=== PATIENT | male | born 1985 | race Caucasian/White ===

== ENCOUNTER 2018-02-27 13:25 | Emergency (ER) | payer BC ==
[2018-02-27 14:03] VITALS: BP 109/73
--- NOTE | 2018-02-27 14:12 | RAD ---
INDICATION: Right ankle injury. TECHNIQUE: 3 views of the right ankle were obtained. FINDINGS: Soft tissue swelling is noted along the anterolateral aspect of the ankle. No fracture is seen. Joint spaces appear maintained. IMPRESSION: SOFT TISSUE SWELLING, NO FRACTURE IS SEEN.
--- NOTE | 2018-02-27 14:15 | RAD ---
INDICATION: Right foot injury. TECHNIQUE: 3 views of the right foot were obtained. FINDINGS: There is lateral soft tissue swelling. The bones are normal alignment. No fracture is seen. Joint spaces appear maintained. IMPRESSION: NO EVIDENCE FOR FRACTURE, IF THE PATIENT'S SYMPTOMS PERSIST RECOMMEND FOLLOW-UP IMAGING.
--- NOTE | 2018-02-27 14:40 | UC ---
Lower Extremity/Ankle HPI - HPI Summary HPI Summary: 32 yo gentleman c/o R foot pain, radiates to ankle. Foot pain is prox dorsal primarily. Also discomfort periodically Great toe. Denies known injury. Did play basketball a couple weeks ago, no problems during the game, but awoke the next morning with a great deal of pain. Still hurts, downward position hurts. Not sure may be flat foot. Not hyperflexible, indeed reports that he is not flexible. - History of Current Complaint Chief Complaint: UCLowerExtremity Stated Complaint: RT FOOT COMP Time Seen by Provider: 02/27/18 13:53 Hx Obtained From: Patient Pain Intensity: 8 - Allergies/Home Medications Allergies/Adverse Reactions: Allergies Allergy/AdvReac Type Severity Reaction Status Date / Time No Known Allergies Allergy Verified 02/27/18 14:02 PMH/Surg Hx/FS Hx/Imm Hx Previously Healthy: Yes - Surgical History Surgical History: None - Family History Known Family History: Positive: Unknown - Social History Alcohol Use: Weekly Substance Use Type: Marijuana Substance Use Comment - Amount & Last Used: daily/weekly use Smoking Status (MU): Never Smoked Tobacco Review of Systems Constitutional: Negative Skin: Negative Eyes: Negative ENT: Negative Respiratory: Negative Cardiovascular: Negative Gastrointestinal: Negative Genitourinary: Negative Motor: Other - see hpi Musculoskeletal: Arthralgia Neurological: Negative Psychological: Negative Is Patient Immunocompromised?: No All Other Systems Reviewed And Are Negative: Yes Physical Exam Triage Information Reviewed: Yes Appearance: Well-Nourished Vital Signs: Initial Vital Signs Temp 98.5 F 02/27/18 13:58 Pulse 57 02/27/18 13:58 Resp 14 02/27/18 13:58 BP 109/73 02/27/18 13:58 Pulse Ox 99 02/27/18 13:58 Vital Signs Reviewed: Yes Eye Exam: Normal - grossly normal ENT Exam: Normal - grossly normal Neck exam: Normal - no c/o's Respiratory Exam: Normal - no tachypnea, no dyspnea Cardiovascular Exam: Normal Cardiovascular: Positive: RRR, No Murmur, Pulses Normal, Brisk Capillary Refill Abdominal Exam: Normal Abdomen Description: Positive: Nontender Musculoskeletal Exam: Other - Tender diffuse R foot, mostly proximal. Tenderness extens post mall region, but w/o point tenderness. Minimal swelling ( although + c/o pain in downward position). Seems flat footed. C/o ankle and foot cracking sounds / sensation when moves foot. Neurological Exam: Normal - distal sens LT present x 5 digits Psychological Exam: Normal - conversing easily and appropriately Lower Extremity Course/Dx - Course Course Of Treatment: XRAys ankle / foot nad. Likely overuse / sprain; however, suspect underlying etiology not definable at this time. Consider [facility]? Mr Burnett expresses interest in orthopedic referral. Referral placed to ortho. CAM boot for comfort. Rx naproxen. Questions as posed answered to the best of my ability. - Differential Dx/Diagnosis Provider Diagnoses: Chronic foot arthralgia,. with additional sprain Discharge - Sign-Out/Discharge Documenting (check all that apply): Discharge/Admit/Transfer - Discharge Plan Condition: Stable Disposition: HOME Prescriptions: Naproxen [Naprosyn 500 mg tab] 500 mg PO Q12H PRN #30 tablet PRN Reason: Pain Patient Education Materials: Sprain (ED), Arthralgia (ED) Referrals: Kyle Braswell MD [Medical Doctor] - No Primary Care Phys,NOPCP [Primary Care Provider] - Additional Instructions: Exact reason for your foot pain is unclear (in addition to sprain) Follow up with orthopedic surgery - 1-2 weeks. Offload as much as possible. Seek medical attention for worse or new problems. - Billing Disposition and Condition Condition: STABLE Disposition: Home
== END 2018-02-27 14:43 | disposition home or self-care (01) ==
LOC: UCCORT 13:25
DX: S93.601A Unspecified sprain of right foot, initial encounter (principal); X50.0XXA Overexertion from strenuous movement or load, initial encounter; Y93.67 Activity, basketball; Y92.9 Unspecified place or not applicable; Y99.9 Unspecified external cause status; M25.571 Pain in right ankle and joints of right foot
CPT/HCPCS: 99203; G0463

== ENCOUNTER 2019-10-26 17:44 | Emergency (ER) | payer BC, OTHER ==
--- NOTE | 2019-10-26 18:30 | UC ---
FLU HPI - HPI Summary HPI Summary: 33 yo male presents with flu-like symptoms. He tells me that last night he began to have fever, fatigue, body aches, and nausea. Has not taking anything OTC for his symptoms. Is concerned he has the flu. Did not get the flu shot this year. Denies SOB, rash, abdominal pain, vomiting, diarrhea. - History of Current Complaint Stated Complaint: FLU SXS,FEVER Time Seen by Provider: 10/26/19 18:30 Hx Obtained From: Patient Onset/Duration: Sudden Onset Severity Currently: Moderate Severity Initially: Moderate Pain Intensity: 4 Pain Scale Used: 0-10 Numeric - Allergy/Home Medications Allergies/Adverse Reactions: Allergies Allergy/AdvReac Type Severity Reaction Status Date / Time No Known Allergies Allergy Verified 10/26/19 18:34 Home Medications: Home Medications Phenylephrine/Dm/Acetaminop/GG [Tylenol Cold-Flu Severe Caplet] 1 each PO ONCE 10/26/19 [History Confirmed 10/26/19] PMH/Surg Hx/FS Hx/Imm Hx - Additional Past Medical History Additional PMH: None - Surgical History Surgical History: None - Family History Known Family History: Positive: Unknown - Social History Occupation: Employed Full-time Lives: With Family Alcohol Use: Weekly Substance Use Type: Marijuana Substance Use Comment - Amount & Last Used: daily/weekly use Smoking Status (MU): Never Smoked Tobacco Review of Systems All Other Systems Reviewed And Are Negative: No Constitutional: Positive: Fever, Fatigue, Other - Body aches Skin: Positive: Negative Eyes: Positive: Negative ENT: Positive: Negative Respiratory: Positive: Cough Cardiovascular: Positive: Negative Gastrointestinal: Positive: Nausea Genitourinary: Positive: Negative Neurological/Mental Status: Positive: Negative Psychological: Positive: Negative Physical Exam - Summary Physical Exam Summary: GENERAL: NAD. WDWN. No pain distress. SKIN: No rashes, sores, lesions, or open wounds. HEENT: Head: AT/NC Eyes: EOM intact. Conjunctiva clear without inflammation or discharge. Ears: Hearing grossly normal. TMs intact, no bulging, erythema, or edema. Nose: Nasal mucosa pink and moist. NTTP maxillary and frontal sinus. Throat: Posterior oropharynx without exudates, erythema, or tonsillar enlargement. Uvula midline. NECK: Supple. Nontender. No lymphadenopathy. CHEST: CTAB. No r/r/w. No accessory muscle use. Breathing comfortably and in no distress. CV: RRR. Pulses intact. Cap refill <2seconds NEURO: Alert. PSYCH: Age appropriate behavior. Triage Information Reviewed: Yes Vital Signs: Vital Signs: Temp Pulse Resp BP Pulse Ox 99.8 F 113 18 107/47 97 10/26/19 18:30 10/26/19 18:30 10/26/19 18:30 10/26/19 18:30 10/26/19 18:30 Laboratory Tests 10/26/19 18:37 Influenza A (Rapid) Positive H Vital Signs Reviewed: Yes Flu Course/Dx - Course Course Of Treatment: POC flu positive. Given that he is nauseous - will rx for zofran instead of tamiflu - Differential Dx/Diagnosis Provider Diagnosis: Influenza Discharge ED - Sign-Out/Discharge Documenting (check all that apply): Patient Departure All imaging exams completed and their final reports reviewed: No Studies - Discharge Plan Condition: Stable Disposition: HOME Prescriptions: Ondansetron ODT TAB* [Zofran 4 MG Odt TAB*] 4 mg PO Q6H PRN #12 tab.odt PRN Reason: Nausea Patient Education Materials: Influenza (ED) Referrals: Lydia Guzman PA [Primary Care Provider] - Additional Instructions: Most people with the flu recover within one to two weeks without treatment. However, serious complications of the flu can occur. Go to the ER immediately if you: -- You feel short of breath or have trouble breathing -- You have pain or pressure in your chest or stomach -- You have signs of being dehydrated, such as dizziness when standing or not passing urine -- You feel confused -- You cannot stop vomiting or you cannot drink enough fluids There are several groups of people who are at increased risk for flu complications. These include women, young children (<5 years of age and especially <2 years of age), people older than 65 years of age, and people with certain diseases such as chronic lung disease (such as asthma), heart disease, diabetes, immunosuppressing conditions (such as HIV infection or transplantation), and some other diseases. Treat symptoms Treating the symptoms of influenza can help you to feel better but will not make the flu go away faster. -- Rest until the flu is fully resolved, especially if the illness has been severe. -- Fluids Drink enough fluids so that you do not become dehydrated. One way to drum operator if you are drinking enough is to look at the color of your urine. Normally, urine should be light yellow to nearly colorless. If you are drinking enough, you should pass urine every three to five hours. -- Acetaminophen (sample brand name: Tylenol) can relieve fever, headache, and muscle aches. Aspirin and medicines that include aspirin (eg, bismuth subsalicylate [sample brand name: Pepto-Bismol]) are not recommended for children under 18 because aspirin can lead to a serious disease called Isela syndrome. -- Cough medicines are not usually helpful; cough usually resolves without treatment. We do not recommend cough or cold medicine for children under age 6 years. Antiviral treatment Antiviral medicines can be used to treat or prevent influenza. When used as a treatment, the medicine does not eliminate flu symptoms, although it can reduce the severity and duration of symptoms by about one day. Not every person with influenza needs an antiviral medicine, but some people do; the decision is based upon several factors. If you are severely ill and/or have risk factors for developing complications of influenza, you will need an antiviral agent. People who are only mildly ill and have no risk factors for complications usually do not need to be treated with antiviral medication. - Billing Disposition and Condition Condition: STABLE Disposition: Home
[2019-10-26 18:32] VITALS: BP 107/47
[2019-10-26 18:42] LABS: Influenza A Molecular POSITIVE (Negative)
== END 2019-10-26 18:52 | disposition home or self-care (01) ==
LOC: UCCORT 17:44
DX: J11.1 Influenza due to unidentified influenza virus with other respiratory manifestations (principal)
CPT/HCPCS: 99212; G0463